=== PATIENT | female | born 1975 | race Caucasian/White ===

== ENCOUNTER 2024-02-18 09:49 | Day surgery (SDC) | payer OTHER ==
[~2024-02-18] VITALS: Ht 168.9 cm; Wt 83.9 kg
[2024-02-18 10:38] LABS: HCG,QUAL RESULT NEGATIVE (NEGATIVE)
[2024-02-18] MEDS ORDERED: KETOROLAC TROMETHAMINE 30 MG VIAL ONE (11:35)
[2024-02-18] MEDS ORDERED: LR 1,000 ML IV.SOLN IV ONE (11:35)
[2024-02-18] MEDS ORDERED: PROPOFOL 200MG/ 20ML VIAL (DIPRIVAN) IV ONE (11:35)
[2024-02-18] MEDS ORDERED: ONDANSETRON HCL 4 MG/2 ML VIAL ONE (11:35)
[2024-02-18] MEDS ORDERED: NS IRRIG SOLN 1000 ML IR ONE (11:35)
[2024-02-18] MEDS ORDERED: SEVOFLURANE 15 MIN GAS INH ONE (11:35)
[2024-02-18] MEDS ORDERED: NS 1000 ML IV.SOLN IV ONE (11:35)
[2024-02-18] MEDS ORDERED: METOCLOPRAMIDE HCL 10 MG/2 ML VIAL IVP PRN (12:00)
[2024-02-18] MEDS ORDERED: IBUPROFEN 600 MG TABLET PO ONE (12:00)
[2024-02-18] MEDS ORDERED: ONDANSETRON HCL 4 MG/2 ML VIAL IVP PRN (12:00)
[2024-02-18] MEDS: ACETAMINOPHEN I.V. 1000 MG 100 ML IV ONE (13:40)
[2024-02-18 14:15] VITALS: O2SAT 100
[2024-02-18 15:37] VITALS: BP_SYST 172; PULSE 70; RESP 16
== END 2024-02-18 15:10 | disposition home or self-care (01) ==
LOC: SDS 09:49 → SMU 09:52 → EDBD 11:30 → SMU 13:42 → SDS 15:10
PROVIDERS: ATTEND Obstetrics & Gynecology
DX: N92.0 Excessive and frequent menstruation with regular cycle (principal); I10 Essential (primary) hypertension; E11.9 Type 2 diabetes mellitus without complications; E66.01 Morbid (severe) obesity due to excess calories; Z68.29 Body mass index [BMI] 29.0-29.9, adult; Z79.4 Long term (current) use of insulin; Z79.84 Long term (current) use of oral hypoglycemic drugs; Z79.899 Other long term (current) drug therapy
CPT/HCPCS: 87081; 58563; 82948; 84703; J1885; J2405; J2704; J7120; J7030